=== PATIENT | female | born 1985 | race African-American/Black ===

== ENCOUNTER 2019-06-17 03:16 | Emergency (ER) | payer MEDICAID ==
[~2019-06-17] VITALS: Ht 167.6 cm; Wt 85.0 kg
[2019-06-17 04:46] LABS: CLARITY URINE CLOUDY (CLEAR); COLOR URINE YELLOW (YELLOW); KETONES URINE NEGATIVE (NEGATIVE); LEUKOCYTE ESTERASE URINE NEGATIVE (NEGATIVE); NITRITE URINE NEGATIVE (NEGATIVE); OCCULT BLOOD URINE TRACE (NEGATIVE); PH URINE 6.5 (4.5-8.0); PROTEIN URINE NEGATIVE (NEGATIVE); SPECIFIC GRAVITY URINE 1.024 (1.005-1.030)
[2019-06-17 05:58] VITALS: BP 138/81
== END 2019-06-17 06:04 | disposition home or self-care (01) ==
LOC: ER 03:16
DX: J06.9 Acute upper respiratory infection, unspecified (principal); R30.0 Dysuria; R03.0 Elevated blood-pressure reading, without diagnosis of hypertension
CPT/HCPCS: 71045; 81003; 81025; 99284

== ENCOUNTER 2020-11-11 01:56 | Emergency (ER) | payer MEDICAID ==
[~2020-11-11] VITALS: Ht 165.1 cm; Wt 100.0 kg
[2020-11-11] MEDS ORDERED: KETOROLAC 60MG/2ML VIAL IM ONE (02:30)
[2020-11-11 02:41] VITALS: BP 118/82
[2020-11-11] MEDS ORDERED: IBUPROFEN 600MG TABLET PO ONE (02:45)
[2020-11-11] MEDS ORDERED: ASPIRIN 81MG TABLET PO ONE (02:45)
== END 2020-11-11 03:01 | disposition home or self-care (01) ==
LOC: ER 02:40
DX: U07.1 COVID-19 (principal); R07.89 Other chest pain; F41.9 Anxiety disorder, unspecified
CPT/HCPCS: 81025; 93005; 99283; Z7610; J1885

== ENCOUNTER 2021-10-08 11:30 | Observation (INO) | payer MEDICAID ==
[~2021-10-08] VITALS: Ht 162.6 cm; Wt 103.9 kg
[2021-10-08 13:11] LABS: BASOPHILS % 0.8 % (0.0-2.0); EOSINOPHILS % 0.4 % (0.0-5.0); HEMATOCRIT. 33.2 % (36.0-48.0); HEMOGLOBIN. 11.1 g/dL (12.0-16.0); LYMPHOCYTES % 20.5 % (20.0-50.0); MEAN CORPUSCULAR HEMOGLOBIN 27.7 pg (28.0-32.0); MEAN CORPUSCULAR VOLUME 82.6 fL (81.0-99.0); MEAN PLATELET VOLUME 9.4 fl (7.4-10.4); MONOCYTES % 3.6 % (2.0-8.0); NEUTROPHILS % 74.7 % (40.0-76.0); PLATELET 235 x1000/uL (130-400); RED BLOOD CELL COUNT 4.02 mill/uL (4.2-5.4); RED CELL DISTRIBUTION WIDTH 13.3 % (11.6-14.6)
[2021-10-08] MEDS ORDERED: LACTATED RINGERS 1,000 ML IV ONE (15:00)
[2021-10-08] MEDS ORDERED: RHO(D) IMMUNE GLOBULIN 300 MCG/SYR IM SCH (15:30)
== END 2021-10-08 15:45 | disposition home or self-care (01) ==
LOC: 8 EST A/PP 11:30
PROVIDERS: ADMIT Obstetrics & Gynecology; ATTEND Obstetrics & Gynecology
DX: O26.853 Spotting complicating pregnancy, third trimester (principal); Z3A.30 30 weeks gestation of pregnancy; Z23 Encounter for immunization
CPT/HCPCS: 36415; 59025; 76805; 76818; 85025; 86886; 90384; 96372; G0378; 99281; J2791

== ENCOUNTER 2021-11-22 18:00 | Inpatient (IN) | payer OTHER, MEDICAID ==
[~2021-11-22] VITALS: Ht 162.6 cm; Wt 104.3 kg
[2021-11-22] MEDS ORDERED: LACTATED RINGERS 1,000 ML IV SCH (18:45)
[2021-11-22] MEDS ORDERED: NALOXONE HCL 0.4 MG/ML 1ML VIAL IM PRN (18:45)
[2021-11-22] MEDS ORDERED: METHYLERGONOVINE MALEATE 0.2 MG/ML IM PRN (18:45)
[2021-11-22] MEDS ORDERED: OXYTOCIN 30 UNITS/500ML NS PMX 500 ML IV SCH (18:45)
[2021-11-22] MEDS ORDERED: LIDOCAINE HCL 1% 10 MG/ML 10ML VIAL IJ SCH (18:45)
[2021-11-22] MEDS ORDERED: CARBOPROST TROMETHAMINE 250 MCG/ML AMPUL IM PRN (18:45)
[2021-11-22] MEDS ORDERED: BUTORPHANOL TARTRATE 2 MG/ML VIAL IV PRN (18:45)
[2021-11-22] MEDS ORDERED: PENICILLIN G POTASSIUM 5 MMU in DEXT 5% WATER 100 ML IV NR (19:00)
[2021-11-22 20:22] LABS: CLARITY URINE CLEAR (CLEAR); COLOR URINE YELLOW (YELLOW); KETONES URINE NEGATIVE (NEGATIVE); LEUKOCYTE ESTERASE URINE 1+ (NEGATIVE); NITRITE URINE NEGATIVE (NEGATIVE); OCCULT BLOOD URINE NEGATIVE (NEGATIVE); PH URINE 6.5 (4.5-8.0); PROTEIN URINE NEGATIVE (NEGATIVE); SPECIFIC GRAVITY URINE 1.008 (1.005-1.030)
[2021-11-22 20:32] LABS: INR 0.9; PROTHROMBIN TIME 9.8 sec (9.6-11.0)
[2021-11-22 20:33] LABS: *AMPHETAMINES SCREEN URINE NEGATIVE (NEGATIVE); *BARBITURATES SCREEN URINE NEGATIVE (NEGATIVE); *BENZODIAZEPINES SCREEN URINE NEGATIVE (NEGATIVE); *COCAINE SCREEN URINE NEGATIVE (NEGATIVE); CANNABINOID URINE SCREEN NEGATIVE (NEGATIVE); METHADONE URINE SCREEN NEGATIVE (NEGATIVE); OPIATES URINE SCREEN NEGATIVE (NEGATIVE); PHENCYCLIDINE URINE SCREEN NEGATIVE (NEGATIVE)
[2021-11-22 20:36] LABS: BASOPHILS % 1.1 % (0.0-2.0); EOSINOPHILS % 0.2 % (0.0-5.0); HEMATOCRIT. 35.5 % (36.0-48.0); HEMOGLOBIN. 11.7 g/dL (12.0-16.0); LYMPHOCYTES % 20.6 % (20.0-50.0); MEAN CORPUSCULAR HEMOGLOBIN 27.2 pg (28.0-32.0); MEAN CORPUSCULAR VOLUME 82.9 fL (81.0-99.0); MONOCYTES % 2.7 % (2.0-8.0); NEUTROPHILS % 75.4 % (40.0-76.0); PLATELET 231 x1000/uL (130-400); RED BLOOD CELL COUNT 4.28 mill/uL (4.2-5.4); RED CELL DISTRIBUTION WIDTH 13.8 % (11.6-14.6)
[2021-11-22 21:08] LABS: HEPATITIS B SURFACE ANTIGEN NEGATIVE
[2021-11-22] MEDS ORDERED: PENICILLIN G POTASSIUM 2.5 MMU in DEXTROSE 5% WATER 50 ML IV SCH (23:00)
[2021-11-23] MEDS ORDERED: OXYCODONE HCL/ACETAMINOPHEN 5/325MG TABLET PO PRN (02:15)
[2021-11-23] MEDS ORDERED: LANOLIN OINT 7GM TUBE TOP PRN (02:15)
[2021-11-23] MEDS ORDERED: HEMORRHOIDAL SUPP PR PRN (02:15)
[2021-11-23] MEDS ORDERED: RHO(D) IMMUNE GLOBULIN 300 MCG/SYR IM PRN (02:15)
[2021-11-23] MEDS ORDERED: BISACODYL 10MG SUPP PR PRN (02:15)
[2021-11-23] MEDS ORDERED: DIPHENHYDRAMINE 25MG CAPSULE PO PRN (02:15)
[2021-11-23] MEDS ORDERED: METHYLERGONOVINE MALEATE 0.2 MG/ML IM PRN (02:15)
[2021-11-23] MEDS ORDERED: GLYCERIN/WITCH HAZEL LEAF MEDICATED PAD TOP PRN (02:15)
[2021-11-23] MEDS ORDERED: IBUPROFEN 400MG TABLET PO PRN (02:15)
[2021-11-23] MEDS ORDERED: OXYTOCIN 30 UNITS/500ML NS PMX 500 ML IV SCH (02:15)
[2021-11-23] MEDS: IBUPROFEN 800MG TABLET PO PRN ×2 (02:32→20:05)
[2021-11-23 03:35] VITALS: BP 122/69
[2021-11-23 04:05] VITALS: BP 118/68
[2021-11-23 04:35] VITALS: BP 118/55
[2021-11-23 08:00] VITALS: BP 130/81
[2021-11-23] MEDS: PRENATAL VIT/FE FUMARATE/FA TABLET PO SCH (08:52)
[2021-11-23] MEDS: SIMETHICONE 80MG TABLET CHEW PO SCH ×2 (08:53→20:05)
[2021-11-23 15:49] VITALS: BP 128/81
[2021-11-23 20:00] VITALS: BP 114/59
[2021-11-23] MEDS ORDERED: DOCUSATE SODIUM 100MG CAPSULE PO SCH (21:00)
[2021-11-24 04:00] VITALS: BP 132/82
[2021-11-24 07:18] LABS: BASOPHILS % 1.4 % (0.0-2.0); EOSINOPHILS % 0.5 % (0.0-5.0); HEMATOCRIT. 34.4 % (36.0-48.0); HEMOGLOBIN. 11.2 g/dL (12.0-16.0); MEAN CORPUSCULAR HEMOGLOBIN 27.4 pg (28.0-32.0); MEAN PLATELET VOLUME 10.2 fl (7.4-10.4); MONOCYTES % 1.8 % (2.0-8.0); NEUTROPHILS % 73.3 % (40.0-76.0); PLATELET 211 x1000/uL (130-400); RED CELL DISTRIBUTION WIDTH 13.8 % (11.6-14.6)
[2021-11-24] MEDS ORDERED: FERROUS SULFATE 325MG TABLET PO SCH (07:30)
[2021-11-24 08:10] VITALS: BP 122/79
[2021-11-24] MEDS: PRENATAL VIT/FE FUMARATE/FA TABLET PO SCH (08:43)
[2021-11-24] MEDS: SIMETHICONE 80MG TABLET CHEW PO SCH (08:44)
[2021-11-24] MEDS: IBUPROFEN 800MG TABLET PO PRN (08:50)
== END 2021-11-24 16:15 | disposition home or self-care (01) | DRG 807 ==
LOC: OBSVTOIN 18:00 → 8 EST LDRP 18:00 → 8EST 11-23 03:30
PROVIDERS: ADMIT Specialist; ATTEND Specialist
PROC: 10E0XZZ Delivery of Products of Conception, External Approach (ICD-10-PCS; principal; 2021-11-23)
DX: O69.81X0 Labor and delivery complicated by cord around neck, without compression, not applicable or unspecified (principal); Z37.0 Single live birth; O99.344 Other mental disorders complicating childbirth; Z20.822 Contact with and (suspected) exposure to COVID-19; F41.9 Anxiety disorder, unspecified; Z88.8 Allergy status to other drugs, medicaments and biological substances; Z72.0 Tobacco use; Z3A.37 37 weeks gestation of pregnancy
CPT/HCPCS: 36415; 80305; 81003; 85025; 86592; 86703; 86762; 86850; 86870; 86900; 87340; 87426; 99281; G0378; J2540; J7060; J2590

== ENCOUNTER 2022-05-30 22:13 | Emergency (ER) | payer OTHER, MEDICAID ==
[~2022-05-30] VITALS: Ht 162.6 cm; Wt 100.0 kg
[2022-05-30 22:42] VITALS: BP 141/92
[2022-05-30] MEDS ORDERED: DIPH35CR TP (23:42)
[2022-05-30] MEDS ORDERED: TC1U15 TP (23:42)
== END 2022-05-31 00:21 | disposition home or self-care (01) ==
LOC: ER 22:13
DX: T78.40XA Allergy, unspecified, initial encounter (principal); Z88.8 Allergy status to other drugs, medicaments and biological substances; Z98.890 Other specified postprocedural states; X58.XXXA Exposure to other specified factors, initial encounter
CPT/HCPCS: 99283